=== PATIENT | male | born 1995 | race Two or more races ===

== ENCOUNTER 2021-12-01 13:46 | Emergency (ER) | payer MEDICAID ==
[~2021-12-01] VITALS: Ht 170.2 cm; Wt 70.0 kg
[2021-12-01] MEDS ORDERED: ACETAMINOPHEN 325 MG TAB PO ONE (17:00)
[2021-12-01] MEDS ORDERED: IBUP800T27 PO (17:17)
[2021-12-01] MEDS ORDERED: AMOX-277 PO (17:17)
[2021-12-01 17:27] VITALS: BP 114/78
== END 2021-12-01 17:54 | disposition home or self-care (01) ==
LOC: ER 13:46
DX: K04.7 Periapical abscess without sinus (principal)

== ENCOUNTER 2022-06-14 15:05 | Emergency (ER) | payer MEDICAID ==
[~2022-06-14] VITALS: Ht 172.7 cm; Wt 65.3 kg
[~2022-06-14 15:05] MED LIST: AMOX-277 PO; IBUP800T27 PO
[2022-06-14 16:57] VITALS: BP 121/67
[2022-06-14] MEDS ORDERED: NAPR500T31 PO (16:57)
== END 2022-06-14 17:02 | disposition home or self-care (01) ==
LOC: ER 15:05
DX: S63.91XA Sprain of unspecified part of right wrist and hand, initial encounter (principal); Z88.1 Allergy status to other antibiotic agents; X50.9XXA Other and unspecified overexertion or strenuous movements or postures, initial encounter; Y93.89 Activity, other specified; Y92.89 Other specified places as the place of occurrence of the external cause; Y99.8 Other external cause status
CPT/HCPCS: 73130